=== PATIENT | female | born 1990 | race Two or more races ===

== ENCOUNTER 2018-03-28 13:01 | Inpatient (IN) | payer SELFPAY ==
[~2018-03-28] VITALS: Ht 152.4 cm; Wt 66.2 kg
[~2018-03-28 13:01] MED LIST: DOCU-109 PO; IBUP-1060 PO; OXYC-323 PO
[2018-03-28] MEDS: IV RINGERS,LACTATED 1000ML 1,000 ML IV PRN ×2 (14:04→17:49)
[2018-03-28] MEDS: oxyCODONE/APAP 5/325 1 TAB TABLET PO PRN ×2 (14:08→20:08)
[2018-03-28 14:23] LABS: BASO % 0 % (0-3); EOS # 0.1 x10^3/uL (0.0-0.7); EOS % 2 % (0-3); HEMATOCRIT 32.4 % (36.0-47.0); HEMOGLOBIN 10.8 g/dL (12.0-15.5); LYMPH # 1.9 x10^3/uL (1.0-4.8); LYMPH % 20 % (24-48); MEAN CORPUSCULAR HEMOGLOBIN 25 pg (25-35); MEAN CORPUSCULAR HGB CONC 33 g/dL (31-37); MEAN CORPUSCULAR VOLUME 75 fL (79-100); MONO # 0.9 x10^3/uL (0.0-1.1); MONO % 10 % (0-9); NEUT # 6.5 x10^3uL (1.8-7.7); NEUT % 69 % (31-73); PLATELET COUNT 363 x10^3/uL (140-400); RED BLOOD COUNT 4.35 x10^6/uL (3.50-5.40); RED CELL DISTRIBUTION WIDTH 15.9 % (11.5-14.5); WHITE BLOOD COUNT 9.5 x10^3/uL (4.0-11.0)
--- NOTE | 2018-03-28 14:50 | RAD ---
OB ULTRASOUND, > 14 WEEKS Clinical Indication: PAIN ALONG PREVIOUS C SECTION SCAR/UNSURE DATES Comparison: None. Technique: Multiple grayscale images, color Doppler, and M-mode images of the uterus are obtained. Findings: No hernia or mass is identified along the section scar. There is a single intrauterine gestation in vertex presentation. The placenta is anterior in location without evidence of placenta previa. The amount of amniotic fluid appears appropriate. Amniotic fluid index is 6.9 cm. The cervix is not visualized. Biometrical data: BPD = 8.1 cm for 32 weeks 1 days. HC = 30.6 cm for 34 weeks 1 days. AC = 29.3 cm for 33 weeks 2 days. FL = 6.7 cm for 34 weeks 3 days. HC/AC ratio = 1.05. Overall, the estimated sonographic gestational age is 33 weeks and 4 days for an estimated date of delivery of May 12, 2018. Estimated weight is 2237 +/- 331 grams. A anatomic survey is not performed due to advanced gestational age. Estimated heart rate is 136 bpm. Impression: Single live intrauterine gestation with estimated sonographic gestational age of 33 weeks and 4 days. Electronically signed by: Jose Roberto Adrian MD (03/28/2018 2:46 PM) [id number]
[2018-03-28 14:58] LABS: ALBUMIN 2.7 g/dL (3.4-5.0); ALBUMIN/GLOBULIN RATIO 0.7 (1.0-1.7); CALCIUM 9.1 mg/dL (8.5-10.1); CREATININE 0.4 mg/dL (0.6-1.0); GFR 188.7; POTASSIUM 4.3 mmol/L (3.5-5.1); TOTAL BILIRUBIN 0.2 mg/dL (0.2-1.0); TOTAL PROTEIN 6.5 g/dL (6.4-8.2)
--- NOTE | 2018-03-28 17:12 | PDOC1 ---
OB - History Hx of Present Care: Good Care Ultrasounds: Normal mid trimester US Obstetrical Complications: None Medical Complications: None Past Family/Social History * Past Medical, Surgical, Family and Obstetric Histories reviewed from chart. Rubella: Immune RPR/VDRL: Negative GBS Status: Negative HBsAG: Negative OB - Chief Complaint & HPI Date of Admission: Date of Admission: Mar 28, 2018 at 13:01 Chief Complaint/History : 4 Para: 3 EGA: 36 Reason for admission: observation (abd pain and irregular contractions) Admission Nurse Assessment Rev: Yes OB - Admission Exam Physical Exam HEENT: Normal Heart: Regular Rate Lungs: Clear Abdomen: Gravid, Soft, Tender Extremities: Edema Reflexes: Normal Cervical Dilatation: None Effacement: 25% Station: -3 Membranes: Intact Heart Rate: Normal Accelerations: Accelerations Present Decelerations: No decelerations Contractions on Admission: 6-10 Minutes Apart Intensity: Mild Text A: 36 wks IUP Previous c/s x 3 contractions P: Admit for IV hydration and pain management. MARIANA ORTEGA Jr, MD Mar 28, 2018 17:12
[2018-03-28] MEDS: hydrOXYzine PAMOATE 25 MG CAPSULE PO PRN ×2 (17:49→23:41)
[2018-03-28] MEDS ORDERED: BETAMET ACET&NA PHOS 30 MG/5 ML VIAL. IM SCH (18:45)
[2018-03-28] MEDS: BETAMET ACET&NA PHOS 30 MG/5 ML VIAL. IM SCH (19:15)
[2018-03-29] MEDS: IV RINGERS,LACTATED 1000ML 1,000 ML IV PRN ×4 (00:25→21:02)
[2018-03-29] MEDS: oxyCODONE/APAP 5/325 1 TAB TABLET PO PRN (02:06)
[2018-03-29] MEDS: BETAMET ACET&NA PHOS 30 MG/5 ML VIAL. IM SCH (07:34)
[2018-03-29 07:45] VITALS: BP 99/59
[2018-03-29] MEDS ORDERED: PNV1TABL25 PO (08:58)
[2018-03-29] MEDS ORDERED: OXYTOCIN 30 UNIT/500 ML PREMIX 500 ML IV PRN ×2 (09:45→18:00)
[2018-03-29] MEDS ORDERED: CITRIC ACID/SODIUM CITRATE 30 ML SOLUTION. PO ONE (14:00)
[2018-03-29] MEDS ORDERED: OXYTOCIN 10 UNIT/ML VIAL. ONE (14:39)
[2018-03-29] MEDS ORDERED: MORPHINE PF 5 MG/10 ML VIAL. ONE (14:39)
[2018-03-29] MEDS ORDERED: METOCLOPRAMIDE HCL 10 MG/2 ML VIAL. ONE (15:34)
[2018-03-29] MEDS ORDERED: PROPOFOL 20 ML IV ONE (16:01)
[2018-03-29] MEDS ORDERED: fentaNYL PF VIAL 100 MCG/2 ML VIAL ONE (16:04)
--- NOTE | 2018-03-29 16:49 | PDOC ---
BRIEF OPERATIVE NOTE Date: Mar 29, 2018 Pre-Op Diagnosis 36/4 early labor left sided pelvic pain Post-Op Diagnosis Same Procedure Performed girl 5#4 oz Left hysterotomy window Surgeon Fili Anesthesia Type: Regional Blood Loss 500cc Complications None Operative Note RLTC/S with BTL TEMO STRAUSS MD Mar 29, 2018 16:49
[2018-03-29] MEDS: fentaNYL PF VIAL 100 MCG/2 ML VIAL IV PRN ×2 (17:38→18:26)
[2018-03-29] MEDS: KETOROLAC 30 MG/ML VIAL. IV PRN (17:49)
[2018-03-29] MEDS ORDERED: diphenhydrAMINE ORAL ELIXIR 12.5 MG/5 ML ML PO PRN (18:00)
[2018-03-29] MEDS ORDERED: ONDANSETRON PF 4 MG/2 ML VIAL. IV PRN (18:00)
[2018-03-29] MEDS ORDERED: MMR per PROTOCOL. MC PRN (18:00)
[2018-03-29] MEDS ORDERED: 0.9 % SODIUM CHLORIDE 10 ML DISP.SYRIN. IV PRN (18:00)
[2018-03-29] MEDS ORDERED: ZOLPIDEM 5 MG TABLET. PO PRN (18:00)
[2018-03-29] MEDS ORDERED: SIMETHICONE 80 MG TAB.CHEW PO PRN (18:00)
[2018-03-29] MEDS ORDERED: oxyCODONE/APAP 5/325 1 TAB TABLET PO PRN (18:00)
[2018-03-29] MEDS ORDERED: MAG HYDROX/ALUMINUM HYD/SIMETH 30 ML ORAL.SUSP PO PRN (18:00)
--- NOTE | 2018-03-29 18:30 | OP ---
DATE OF SURGERY: 03/29/2018 PREOPERATIVE DIAGNOSES: A 36 and 4 intrauterine , in early labor, complicated by a significant lower uterine pain at the level of previous hysterectomy incision, cannot rule out partial uterine dehiscence, symmetrical intrauterine growth restriction. POSTOPERATIVE DIAGNOSES: A 36 and 4 intrauterine , in early labor, complicated by a significant lower uterine pain at the level of previous hysterectomy incision, cannot rule out partial uterine dehiscence, symmetrical intrauterine growth restriction. PROCEDURE: Repeat low transverse with bilateral tubal ligation. SURGEON: Mike Penn M.D. STARCH TREATING ASSISTANT: None. ANESTHESIA: Regional. ESTIMATED BLOOD LOSS: 500 mL. FLUIDS: Crystalloid. SPECIMENS: Right and left oviducts. COMPLICATIONS: None. CONDITION: Stable. FINDINGS: Female , Apgars 8, 9 and 9, weight 5 pounds 4 ounces, hemorrhagic hysterotomy window noted approximately 1-2 cm at the edge of the incision on the left, otherwise normal uterus, tubes and ovaries. DESCRIPTION OF PROCEDURE: Risks, benefits, indications, alternatives were discussed with the patient and the patient's . The patient was brought to the OR theater, placed in supine position with left lateral uterine displacement. After adequate regional anesthesia, the patient was prepped and draped in usual sterile manner. Previous Pfannenstiel incision was taken down sharply with scalpel and Bovie cautery, carried down to rectus fascia with Bovie cautery. Rectus fascia with dense scar tissue was incised sharply with scalpel and extended laterally in each direction with Bovie cautery. Upper edge of rectus fascia was grasped x 2 with Farooq clamps, elevated above the rectus muscle, both bluntly and sharply with gloved hand and Bovie cautery. The same procedure was carried on lower edge of rectus fascia. Rectus muscle with scar tissue was split in the midline carefully using the scalpel and obtaining the midline with Farooq clamps. The rectus muscle extended superiorly and inferiorly carefully with Bovie cautery and scalpel. Parietal peritoneum was entered bluntly with gentle stretch on rectus muscle, room was made for delivery of the . Miko retractor was placed within the pelvic cavity. Sponge was placed in the gutters bilaterally. Bladder flap was created over the level of the previous mentioned window. A low transverse hysterotomy incision was made sharply with a scalpel with care not to injure the underlying structures. Lateral upward traction was done with a gloved hand to extend the hysterotomy incision. Clear fluid had been noted. Gloved hand was placed in the lower uterine segment, used to elevate the head with fundal pressure from the administrative assistant, was delivered on anterior abdominal wall. Infant cried spontaneously and moved all extremities. Cord was doubly clamped, transected cord between two clamps. cried spontaneously and moved all extremities as mentioned above. Cord blood samples were taken, placenta delivered spontaneously intact, 3-vessel cord. Any adherent membrane was wiped free with laparotomy sponge. The low transverse hysterotomy incision was reapproximated with 0 Monocryl in a running locking manner, imbricated in a vertical mattress stitch with 0 Monocryl. Areas of bleeding were controlled with [id number]-[id number] stitches of 3-0 Vicryl. Secondary to the thinness of the lower uterine segment, there was a window that was present. They were very small. These were reapproximated with 3-0 Vicryl in a pqdxot-[id number] manner. Areas of oozing on the dome of the bladder was controlled with Bovie cautery and then with Ирина and FloSeal. Good hemostasis was assured. The uterus had previously been extricated out of the pelvis. Tubes were identified, followed to its fimbriated end. A relatively avascular portion in the mesosalpinx was identified. A window was created, 2-0 plain ties were used to doubly ligate the tube approximately 3-4 cm apart. Tube was transected between the two ligatures and the tube was cauterized. Same procedure was carried out on the opposite side. The uterus was placed back within the pelvic cavity. Gutters were inspected and noted to be free of any blood or debris. The rectus muscle was reapproximated with 3-0 Vicryl in a running locking manner. Good hemostasis was assured. Rectus fascia was reapproximated with 0 PDS in a running manner. Subcutaneous tissue was irrigated with warm normal saline. Bakari fascia was reapproximated with Insorb alex. Sponge, needles, instrument counts were correct x 2 per nursing staff. The patient went to postop anesthesia recovery in stable condition. MIKE PENN MD DR: AMANDA/abram JOB#: [id number] / [id number]
[2018-03-29 20:00] VITALS: BP 96/51
[2018-03-29 20:34] VITALS: BP 96/47
[2018-03-29 22:00] VITALS: BP 92/54
[2018-03-29] MEDS ORDERED: ceFAZolin SODIUM 1 GM in IV DEXTROSE 5% 50 ML IV SCH (22:00)
[2018-03-29] MEDS: ceFAZolin SODIUM IV Push 1 GM VIAL. IVP SCH (22:00)
[2018-03-30] MEDS: KETOROLAC 30 MG/ML VIAL. IV PRN (04:50)
[2018-03-30 05:35] LABS: BASO % 0 % (0-3); EOS % 0 % (0-3); HEMATOCRIT 27.1 % (36.0-47.0); HEMOGLOBIN 9.1 g/dL (12.0-15.5); LYMPH # 1.4 x10^3/uL (1.0-4.8); LYMPH % 11 % (24-48); MEAN CORPUSCULAR HEMOGLOBIN 25 pg (25-35); MEAN CORPUSCULAR HGB CONC 34 g/dL (31-37); MEAN CORPUSCULAR VOLUME 75 fL (79-100); MONO # 1.3 x10^3/uL (0.0-1.1); MONO % 10 % (0-9); NEUT # 10.3 x10^3uL (1.8-7.7); NEUT % 79 % (31-73); PLATELET COUNT 310 x10^3/uL (140-400); RED BLOOD COUNT 3.64 x10^6/uL (3.50-5.40); RED CELL DISTRIBUTION WIDTH 16.2 % (11.5-14.5)
[2018-03-30] MEDS: ceFAZolin SODIUM IV Push 1 GM VIAL. IVP SCH ×2 (05:45→14:00)
[2018-03-30] MEDS: IV RINGERS,LACTATED 1000ML 1,000 ML IV PRN (05:46)
[2018-03-30 06:06] VITALS: BP 98/57
[2018-03-30 11:20] VITALS: BP 110/67
[2018-03-30] MEDS: FERROUS SULFATE 325 MG TABLET. PO SCH ×2 (12:23→18:47)
[2018-03-30] MEDS: IBUPROFEN 800 MG TABLET. PO SCH ×2 (12:24→18:47)
[2018-03-30 15:10] VITALS: BP 102/68
[2018-03-30] MEDS: DOCUSATE SODIUM 100 MG CAPSULE. PO PRN (18:47)
--- NOTE | 2018-03-30 19:08 | PDOC ---
Provider Note Provider Note Doing well VSS Dressing CDI FU in AM Vital Sign - Last 24 Hours 03/29/18 03/29/18 03/29/18 03/30/18 20:00 20:34 22:00 06:06 Temp 98.9 99.0 98.4 98.2 98.9 99.0 98.4 98.2 Pulse 103 119 101 88 Resp 16 16 16 16 B/P (MAP) 96/51 (66) 96/47 (63) 92/54 (67) 98/57 (71) Pulse Ox 95 95 95 O2 Delivery Room Air Room Air Room Air 03/30/18 03/30/18 11:20 15:10 Temp 98.3 98.2 98.3 98.2 Pulse 67 78 Resp 18 18 B/P (MAP) 110/67 (81) 102/68 (79) Pulse Ox 98 97 O2 Delivery Room Air Room Air Intake and Output 03/29/18 03/29/18 03/30/18 15:01 23:01 07:01 Intake Total 2000 ml 50 ml 1285 ml Output Total 400 ml Balance 2000 ml 50 ml 885 ml CBC - BMP 03/30/18 05:00 TEMO STRAUSS MD Mar 30, 2018 19:08
[2018-03-30] MEDS: oxyCODONE/APAP 5/325 1 TAB TABLET PO PRN ×2 (20:23→21:49)
[2018-03-30 20:24] VITALS: BP 106/65
[2018-03-30] MEDS: MAGNESIUM HYDROXIDE 2,400 MG/30 ML ORAL.SUSP. PO PRN (21:49)
[2018-03-31] MEDS: oxyCODONE/APAP 5/325 1 TAB TABLET PO PRN ×5 (05:10→22:00)
[2018-03-31] MEDS: IBUPROFEN 800 MG TABLET. PO SCH ×3 (05:10→22:00)
[2018-03-31 05:15] VITALS: BP 100/64
--- NOTE | 2018-03-31 08:54 | PDOC ---
OB Progress Note Date of Service 03/31/18 Time of Evaluation 0850 Notes Pt. feeling well. No complaints. Lab Laboratory Tests Test 03/30/18 05:00 White Blood Count 13.0 x10^3/uL (4.0-11.0) Red Blood Count 3.64 x10^6/uL (3.50-5.40) Hemoglobin 9.1 g/dL (12.0-15.5) Hematocrit 27.1 % (36.0-47.0) Mean Corpuscular Volume 75 fL (79-100) Mean Corpuscular Hemoglobin 25 pg (25-35) Mean Corpuscular Hemoglobin Concent 34 g/dL (31-37) Red Cell Distribution Width 16.2 % (11.5-14.5) Platelet Count 310 x10^3/uL (140-400) Neutrophils (%) (Auto) 79 % (31-73) Lymphocytes (%) (Auto) 11 % (24-48) Monocytes (%) (Auto) 10 % (0-9) Eosinophils (%) (Auto) 0 % (0-3) Basophils (%) (Auto) 0 % (0-3) Neutrophils # (Auto) 10.3 x10^3uL (1.8-7.7) Lymphocytes # (Auto) 1.4 x10^3/uL (1.0-4.8) Monocytes # (Auto) 1.3 x10^3/uL (0.0-1.1) Eosinophils # (Auto) 0.0 x10^3/uL (0.0-0.7) Basophils # (Auto) 0.0 x10^3/uL (0.0-0.2) Medications Current Medications Ringer's Solution 1,000 ml @ 0 mls/hr Q0M PRN IV PER PROTOCOL Last administered on 03/30/18at 05:46; Start 03/28/18 at 14:00 Oxycodone/ Acetaminophen (Percocet 5/325) 2 tab PRN Q6HRS PRN PO MODERATE TO SEVERE PAIN Last administered on 03/31/18at 05:10; Start 03/28/18 at 14:00 Hydroxyzine Pamoate (Vistaril) 25 mg PRN Q6HRS PRN PO ITCHING 1ST CHOICE Last administered on 03/28/18at 23:41; Start 03/28/18 at 17:30 Betamethasone Sodium Phosphate (Celestone Soluspan) 12 mg Q12H IM Last administered on 03/29/18at 07:34; Start 03/28/18 at 19:00; Stop 03/29/18 at 07:01 ; Status DC Betamethasone Sodium Phosphate (Celestone Soluspan) 12 mg PRN Q12HR IM ; Start 03/28/18 at 18:45; Stop 03/28/18 at 18:45; Status DC Oxytocin/Sodium Chloride 500 ml @ 0 mls/hr CONT PRN PRN IV Post delivery bleeding; Start 03/29/18 at 09:45 Cefazolin Sodium 50 ml @ 100 mls/hr 1X ONCE IV Last administered on at 14:10; Start 03/29/18 at 14:00; Stop 03/29/18 at 14:29; Status DC Citric Acid/ Sodium Citrate (Bicitra) 30 ml 1X ONCE PO Last administered on at 14:09; Start 03/29/18 at 14:00; Stop 03/29/18 at 14:01; Status DC Oxytocin (Pitocin) 10 unit STK-MED ONCE .ROUTE ; Start 03/29/18 at 14:39; Stop 03/29/18 at 14:40; Status DC Ephedrine Sulfate (Akovaz) 50 mg STK-MED ONCE .ROUTE ; Start 03/29/18 at 14:39; Stop 03/29/18 at 14:40; Status DC Morphine Sulfate (Morphine Preservative Free) 5 mg STK-MED ONCE .ROUTE ; Start 03/29/18 at 14:39; Stop 03/29/18 at 14:40; Status DC Metoclopramide HCl (Reglan Vial) 10 mg STK-MED ONCE .ROUTE ; Start 03/29/18 at 15:34; Stop 03/29/18 at 15:35; Status DC Propofol 20 ml @ As Directed STK-MED ONCE IV ; Start 03/29/18 at 16:01; Stop at 16:02; Status DC Fentanyl Citrate (Fentanyl 2ml Vial) 100 mcg STK-MED ONCE .ROUTE ; Start at 16:04; Stop 03/29/18 at 16:06; Status DC Fentanyl Citrate (Fentanyl 2ml Vial) 25 mcg PACU PRN PRN IV PAIN Last administered on 03/29/18at 18:26; Start 03/29/18 at 17:30; Stop 03/30/18 at 17:29 ; Status DC Ketorolac Tromethamine (Toradol 30mg Vial) 30 mg PRN Q6HRS PRN IV PAIN Last administered on 03/30/18at 04:50; Start 03/29/18 at 17:30; Stop 04/03/18 at 17:29 Sodium Chloride (Normal Saline Flush) 3 ml QSHIFT PRN IV AFTER MEDS AND BLOOD DRAWS; Start 03/29/18 at 18:00 Oxytocin/Sodium Chloride 500 ml @ 125 mls/hr CONT PRN IV EXCESSIVE POST- BLEEDING; Start 03/29/18 at 18:00; Stop 03/30/18 at 01:59; Status DC Ibuprofen (Motrin) 800 mg Q8HRS PO Last administered on 03/31/18at 05:10; Start 03/29/18 at 22:00 Ondansetron HCl (Zofran) 4 mg PRN Q6HRS PRN IV NAUSEA/VOMITING; Start 03/29/18 at 18:00 Docusate Sodium (Colace) 100 mg PRN BID PRN PO HARD STOOLS Last administered on 03/30/18at 18:47; Start 03/29/18 at 18:00 Magnesium Hydroxide (Milk Of Magnesia) 2,400 mg PRN DAILY PRN PO CONSTIPATION Last administered on 03/30/18at 21:49; Start 03/29/18 at 18:00 Al Hydroxide/Mg Hydroxide (Mylanta Plus Xs) 30 ml PRN Q4HRS PRN PO HEARTBURN / GAS; Start 03/29/18 at 18:00 Simethicone (Gas-X) 80 mg PRN AFTMEALHC PRN PO GAS / BLOATING; Start 03/29/18 at 18:00 Diphenhydramine HCl (Benadryl Oral Elixir) 12.5 mg PRN Q6HRS PRN PO ITCHING 2ND CHOICE; Start 03/29/18 at 18:00 Ferrous Sulfate (Feosol) 325 mg BIDWMEALS PO Last administered on 03/30/18at 18: 47; Start 03/30/18 at 08:00 Zolpidem Tartrate (Ambien) 5 mg PRN QHS PRN PO INSOMNIA, MAY REPEAT X1; Start 03/29/18 at 18:00 Info (Do NOT chart on this placeholder) 1 ea PRN 1X PRN MC SEE COMMENTS; Start 03/29/18 at 18:00 Info (Do NOT chart on this placeholder) 1 ea PRN 1X PRN MC SEE COMMENTS; Start 03/29/18 at 18:00 Oxycodone/ Acetaminophen (Percocet 5/325) 1 tab PRN Q4HRS PRN PO MILD PAIN Last administered on 03/30/18at 21:49; Start 03/29/18 at 18:00 Oxycodone/ Acetaminophen (Percocet 5/325) 2 tab PRN Q4HRS PRN PO MODERATE PAIN , SEVERE PAIN; Start 03/29/18 at 18:00; Status UNV Cefazolin Sodium 1 gm/Dextrose 50 ml @ 100 mls/hr Q8HRS IV ; Start 03/29/18 at 22:00; Status UNV Cefazolin Sodium (Ancef) 1 gm Q8H IVP Last administered on 03/30/18at 14:00; Start 03/29/18 at 22:00; Stop 03/30/18 at 14:01; Status DC Active Scripts Active Percocet 5-325 Mg Tablet (Oxycodone/Acetaminophen) 1 Each Tablet 1-2 Tab PO Q4- 6HRS Colace (Docusate Sodium) 100 Mg Capsule 1 Cap PO BID Ibuprofen 800 Mg Tablet 800 Mg PO PRN Q6HRS PRN Reported Tablet (Pnv Cmb#95/Ferrous Fumarate/Fa) 1 Each Tablet 1 Tab PO DAILY Exam Abd: soft, non tender, fundus firm Prevena in tact Assessment POD#2 s/p repeat c/s Plan of Care: Continue current Tx, Mgmt MARIANA ORTEGA Jr, MD Mar 31, 2018 08:54
[2018-03-31 09:05] VITALS: BP 106/65
[2018-03-31] MEDS: FERROUS SULFATE 325 MG TABLET. PO SCH ×2 (09:07→22:00)
[2018-03-31] MEDS: DOCUSATE SODIUM 100 MG CAPSULE. PO PRN ×2 (09:07→18:29)
[2018-03-31 14:02] VITALS: BP 99/59
[2018-03-31 18:34] VITALS: BP 108/62
[2018-03-31 21:50] VITALS: BP 117/70
[2018-03-31] MEDS: MAGNESIUM HYDROXIDE 2,400 MG/30 ML ORAL.SUSP. PO PRN (22:00)
[2018-04-01] MEDS: IBUPROFEN 800 MG TABLET. PO SCH ×2 (06:10→14:32)
[2018-04-01] MEDS: oxyCODONE/APAP 5/325 1 TAB TABLET PO PRN (06:10)
[2018-04-01 06:12] VITALS: BP 105/68
[2018-04-01] MEDS: FERROUS SULFATE 325 MG TABLET. PO SCH (10:00)
[2018-04-01 11:10] VITALS: BP 112/70
[2018-04-01] MEDS ORDERED: oxyCODONE/APAP 5/325 1 TAB TABLET PO PRN ×2 (11:30→11:45)
[2018-04-01] MEDS ORDERED: IBUP-1060 PO ×4 (11:38→11:43)
[2018-04-01] MEDS ORDERED: OXYC-323 PO ×2 (11:39→11:44)
[2018-04-01] MEDS ORDERED: FERR1TAB9 PO (11:40)
[2018-04-01] MEDS ORDERED: FERR325T14 PO (11:46)
[2018-04-01 14:15] VITALS: BP 113/72
[2018-04-01] MEDS: DOCUSATE SODIUM 100 MG CAPSULE. PO PRN (14:31)
[2018-04-01] MEDS ORDERED: DOCUSATE SODIUM 100 MG CAPSULE. PO SCH (21:00)
--- NOTE | 2018-04-02 18:07 | PATHOLOGY ---
[facility] Accession Number: [id number] . 01 Material submitted: . PART A: LEFT FALLOPIAN TUBE PART B: RIGHT FALLOPIAN TUBE . 01 Clinical history: . section with bilateral tubal ligation . 02 Diagnosis: A. Left tubal ligation: - Segment of fallopian tube confirmed. . B. Right tubal ligation: - Segment of fallopian tube confirmed. . ([facility]:mm; 04/02/18) [facility]/04/02/2018 . 02 Electronically signed: . Chong Rey MD, Pathologist NPI- [id number] . 01 Gross description: . A. The specimen is received in formalin, labeled "Monzonsanchez, Tessa and left fallopian tube", is a cylindrical segment of glass-pink soft tissue measuring 1.5 x 0.5 cm. Serial sectioning reveals a well-defined lumen. The specimen is entirely submitted in A1. . B. The specimen is received in formalin, labeled "Monzonsanchez, Tessa and right fallopian tube", is a cylindrical segment of glass-pink soft tissue measuring 1.5 x 0.5 cm. Serial sectioning reveals a well-defined lumen. The specimen is entirely submitted in B1. ([facility]; 03/31/2018) [facility] . 02 Pathologist provided ICD-10: Z30.2 . 02 CPT . 435573, [id number] Performed at: 01 [facility] [address], [place] [id number] MD Haseeb Farias MD Phone: [phone] Performed at: 02 [facility] [address] [place], [place] [id number] MD Chong Rey MD Phone: [phone]
== END 2018-04-01 15:07 | disposition home or self-care (01) | DRG 766 ==
LOC: 3 SO LND 13:01 → OBSVTOIN 13:01 → 3 SO LND 17:22 → 3 NORTH 03-29 19:50
PROVIDERS: ADMIT Specialist; ATTEND Specialist
PROC: 10D00Z1 Extraction of Products of Conception, Low, Open Approach (ICD-10-PCS; principal; 2018-03-29)
PROC: 0UB70ZZ Excision of Bilateral Fallopian Tubes, Open Approach (ICD-10-PCS; 2018-03-29)
DX: O34.211 Maternal care for low transverse scar from previous cesarean delivery (principal); Z3A.36 36 weeks gestation of pregnancy; Z37.0 Single live birth; Z90.710 Acquired absence of both cervix and uterus; Z30.2 Encounter for sterilization
CPT/HCPCS: 36415; 76805; 80053; 85025; 86592; 86850; 86900; 86901; 88302; G0378; J0690; J0702; J1885; J2270; J2590; J2704; J2765; J3010; J7030; J7120; Q0177